=== PATIENT | female | born 1940 | race Caucasian/White ===

== ENCOUNTER 2021-09-03 08:05 | Emergency (ER) | payer MEDICARE ==
[2021-09-03 09:23] LABS: HEMOGLOBIN 12.8 gm/dl (12.3-15.3); RED BLOOD COUNT 4.17 M/UL (4.00-5.10)
[2021-09-03] MEDS ORDERED: COLCHICINE0.6 MG PO (11:54)
== END 2021-09-03 12:07 | disposition home or self-care (01) ==
LOC: ER1 08:05
PROVIDERS: Physician Assistant
DX: M10.9 Gout, unspecified (principal); I13.10 Hypertensive heart and chronic kidney disease without heart failure, with stage 1 through stage 4 chronic kidney disease, or unspecified chronic kidney disease; N18.9 Chronic kidney disease, unspecified; Z88.5 Allergy status to narcotic agent; W08.XXXA Fall from other furniture, initial encounter
CPT/HCPCS: 73110; 80053; 84550; 85025; 85652; 86140; 99283